=== PATIENT | female | born 1995 | race Caucasian/White ===

== ENCOUNTER 2017-04-01 04:20 | Inpatient (IN) | payer MEDICAID ==
[~2017-04-01] VITALS: Ht 152.4 cm; Wt 63.6 kg
[2017-04-01 04:57] VITALS: BP 126/80; PULSE 57; Ht 152.4 cm; Wt 63.6 kg
--- NOTE | 2017-04-01 04:59 | TRIAGE ---
OB Triage Datetime Report Generated by CPN: 04/01/2017 04:58 Datetime: 04/01/2017 04:50 Stage of : Labor Assessment Type: Admission Assessment Time of Arrival: 04/01/2017 04:25 EGA: 37.6 Arrived By: Wheelchair Arrived From: Home Chief Complaint: UCs and pain 10 Movement: Present Contractions: Regular Time Contractions Began: 04/01/2017 01:00 Contractions: 2 Rupture of Membranes: Denies Vaginal Bleeding: Normal Show Vaginal Discharge: Denies Recent Sexual Intercouse: Denies Abdominal Trauma: Not Applicable Patient Complaints: Contractions Time Provider Notified: 04/01/2017 04:55 Provider Notified: Russell Initial Plan: EFM/VS/VE Maternal Assessment Level of Consciousness: Fully Conscious DTR's/Clonus: DTRs 2+; No Clonus Headache: Denies Blurred Vision: No Respiratory Effort: Unlabored; Regular Rhythm; Equal Expansion Breath Sounds, Left: Clear and Equal Breath Sounds, Right: Clear and Equal Nausea/Vomiting: Denies RUQ Epigastric Pain: Denies Lower Extremities Edema: None Degree: None Upper Extremities Edema: None Degree: None Facial Edema: None Fall Risk Assessment History of Falling: (0) No Secondary Diagnosis: (0) No Ambulatory Aid: (0) Bedrest/Nurse Assist IV Therapy: (20) Yes Gait: (0) Normal/Bedrest/Immobile Mental Status: (0) Oriented to Own Ability Fall Score: 20 Fall Risk Score Definition: No Risk: No action required Pain Assessment Pain Scale: 4 Pain Presence: Intermittent Pain Type: Contraction Pain Location: Abdomen; Back Datetime: 04/01/2017 04:48 Time of Arrival: 04/01/2017 04:30 EGA: 37.6 Arrived By: Stretcher Arrived From: Other Unit in Hospital Datetime: 04/01/2017 04:30 Stage of : OB Triage Vaginal Exam Dilatation (cms): 4.0 Effacement (%): 80 Station: -2 Exam By: Peter Wagner RN Membrane Status: Intact Vaginal Bleeding: Scant
[2017-04-01] MEDS ORDERED: IBUPROFEN 600 MG TAB PO PRN (05:00)
[2017-04-01] MEDS ORDERED: MISOPROSTOL 200 MCG TAB PR PRN (05:00)
[2017-04-01] MEDS ORDERED: LIDOCAINE 1% (MPF) 30 ML INJ INJ PRN (05:00)
[2017-04-01] MEDS ORDERED: CARBOPROST 250 MCG INJ IM PRN (05:00)
[2017-04-01] MEDS ORDERED: METHYLERGONOVINE 0.2 MG INJ IM PRN (05:00)
[2017-04-01] MEDS ORDERED: OXYTOCIN 30 UNITS/LR 500 ML IV PRN (05:00)
[2017-04-01] MEDS ORDERED: ACETAMINOPHEN/CODEINE #3 TAB PO PRN ×3 (05:00→11:00)
[2017-04-01] MEDS ORDERED: OXYTOCIN 30 UNITS/LR 500 ML IV SCH (05:00)
[2017-04-01] MEDS ORDERED: BUTORPHANOL 2 MG INJ IV PRN ×2 (05:00)
[2017-04-01] MEDS ORDERED: LACTATED RINGER'S 1,000 ML IV PRN (05:02)
[2017-04-01 05:28] LABS: BASOPHILS % 0.5 % (0.0-2.0); EOSINOPHILS # 0.1 10^3/ul (0.0-0.5); EOSINOPHILS % 1.1 % (0.0-7.0); HEMATOCRIT 38.8 % (37.0-47.0); HEMOGLOBIN 13.4 g/dl (12.0-16.0); LYMPHOCYTES # 2.6 10^3/ul (0.8-2.9); LYMPHOCYTES % 32.7 % (15.0-51.0); MEAN CORPUSCULAR HGB CONC 34.5 g/dl (32.0-37.0); MEAN PLATELET VOLUME 11.5 fl (7.4-10.4); MONOCYTE # 0.5 10^3/ul (0.3-0.9); MONOCYTES % 6.1 % (0.0-11.0); NEUTROPHIL # 4.7 10^3/ul (1.6-7.5); PLATELET COUNT 185 10^3/UL (140-415); RED BLOOD COUNT 4.62 10^6/ul (4.20-5.40); RED CELL DISTRIBUTION WIDTH 12.7 % (11.5-14.5); WHITE BLOOD COUNT 7.9 10^3/ul (4.8-10.8)
[2017-04-01] MEDS: LACTATED RINGER'S 1,000 ML IV SCH ×2 (05:33→06:45)
[2017-04-01 05:50] LABS: ALBUMIN 4.2 g/dl (3.3-4.9); ALBUMIN/GLOBULIN RATIO 1.4; BILIRUBIN,INDIRECT 0.4 mg/dl (0-1.1); BILIRUBIN,TOTAL 0.4 mg/dl (0.2-1.3); CALCIUM 9.2 mg/dl (8.4-10.2); CREATININE 0.72 mg/dl (0.44-1.00); POTASSIUM 3.8 mmol/L (3.5-5.1); TOTAL PROTEIN 7.2 g/dl (6.1-8.1)
[2017-04-01 06:10] LABS: INR 0.85; PARTIAL THROMBOPLASTIN TIME 26.4 Sec (25.0-35.0); PROTIME 11.6 Sec (12.2-14.2); PT RATIO 0.9
[2017-04-01 06:52] LABS: ADD UMIC YES; UR BILIRUBIN (Dip) NEGATIVE (NEGATIVE); UR BLOOD (Dip) 3+ (NEGATIVE); UR CLARITY CLEAR (CLEAR); UR COLOR LT. YELLOW (YELLOW); UR GLUCOSE (Dip) NEGATIVE (NEGATIVE); UR KETONES (Dip) NEGATIVE (NEGATIVE); UR LEUKOCYTE ESTERASE (Dip) TRACE (NEGATIVE); UR NITRITE (Dip) NEGATIVE (NEGATIVE); UR TOTAL PROTEIN (Dip) NEGATIVE (NEGATIVE); UR UROBILINOGEN (Dip) 0.2 E.U./dL (0.1-1.0)
[2017-04-01 07:20] LABS: BARBITURATES Negative (NEGATIVE); BENZODIAZEPINES Negative (NEGATIVE); CANNABINOIDS Negative (NEGATIVE); COCAINE Negative (NEGATIVE); OPIATES Negative (NEGATIVE); UR SQUAMOUS EPITHELIAL CELL OCCASIONAL /HPF (FEW)
[2017-04-01 07:41] LABS: ADD SCAN DIFF NO
[2017-04-01] MEDS: OXYTOCIN 30 UNITS/LR 500 ML IV SCH ×4 (08:39→17:39)
--- NOTE | 2017-04-01 09:32 | LDN ---
Date/Time of Note Date/Time of Note DATE: 04/01/17 TIME: 09:26 Delivery Summary Normal spontaneous vaginal delivery(by Leida LEVY) baby boy from OA position shoulders delivered without any difficulties rest of the baby's body follow cord clamped after stopped pulsation placenta spontaneous expulsion inspected complete no vaginal perineal laceration estimated blood loss 250 cc Weeks of Gestation 37 weeks 6 days Placenta Delivered: Spontaneously Meconium: none Episiotomy: No Laceration repair: None Anesthesia type: None Estimated blood loss: 250 Sponge & Needle done & correct: Yes All needle counts correct: Yes Any foreign bodies felt in the: No Problems: Infant Delivery Information Sex Infant Sex: male Apgars 1 Minute: 9 5 Minute: 9 Suctioning Nose & mouth suctioned at fausto: Yes Delee suction performed: No Umbilical Cord Umbilical cord with: 3 Vessels Cord presentations: no nuchal cord Cord Blood was obtained: Yes ANDRÉS ORLANDO MD Apr 01, 2017 09:31
--- NOTE | 2017-04-01 09:37 | HP ---
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 Rubella: immune RPR/VDRL: Negative GBS Status: Negative HBsAG: Negative OB Admission Exam Vital Signs Vital Signs Vital Signs Date Time Temp Pulse Resp B/P Pulse Ox O2 Delivery O2 Flow Rate FiO2 04/01/17 04:57 98.4 57 126/80 Room Air Physical Exam HEENT: WNL Heart: Rhythm Normal Lungs: Clear, Equal Abdomen: WNL Extremities: Normal Reflexes: Normal Cervical Dilatation: 4cm Effacement: 75% Station: -2 Membranes: Intact Heart Rate: 130's Accelerations: Accelerations Present Varibility: Moderate Contractions on Admission: < 5 Minutes Apart Intensity: Firm Last 72 hours Lab Results CBC & BMP 04/01/17 04:35 Liver Function Test 04/01/17 04:35 Alanine Aminotransferase (ALT/SGPT) 33 Albumin 4.2 Alkaline Phosphatase 377 H Aspartate Amino Transf (AST/SGOT) 50 H Direct Bilirubin 0.00 Total Protein 7.2 ANDRÉS ORLANDO MD Apr 01, 2017 09:36
[2017-04-01 11:00] VITALS: BP 104/60; PULSE 61; RESP 18
[2017-04-01] MEDS ORDERED: ACETAMINOPHEN 325 MG TAB PO PRN (11:00)
[2017-04-01] MEDS ORDERED: BENZOCAINE 20% 56 ML SPRAY TOP PRN (11:00)
[2017-04-01] MEDS ORDERED: DIBUCAINE 1% 30 GM OINT PR PRN (11:00)
[2017-04-01] MEDS ORDERED: LANOLIN 7 GM TUBE TOP PRN (11:00)
[2017-04-01] MEDS ORDERED: OXYCODONE/ASPIRIN (4.88/325) TAB PO PRN ×2 (11:00)
[2017-04-01] MEDS ORDERED: ONDANSETRON 4 MG INJ IV PRN (11:00)
[2017-04-01] MEDS ORDERED: WITCH HAZEL/GLYCERIN PAD PR PRN (11:00)
[2017-04-01] MEDS: IBUPROFEN 600 MG TAB PO SCH ×3 (12:10→23:51)
[2017-04-01 15:35] VITALS: BP 112/64; PULSE 60; RESP 18
--- NOTE | 2017-04-01 16:21 | PN ---
Date/Time of Note Date/Time of Note DATE: 04/01/17 TIME: 16:20 OB Subjective Subjective Subjective day 1 Afebrile vital signs abdomen soft uterus firm lochia normal extremity normal ambulation encouraged ANDRÉS ORLANDO MD Apr 01, 2017 16:20
[2017-04-01 20:00] VITALS: BP 129/70; PULSE 63; RESP 18
[2017-04-01] MEDS: SENNA/DOCUSATE NA (8.6MG/50MG) TAB PO SCH (20:59)
[2017-04-02 00:15] VITALS: BP 118/75; PULSE 76; RESP 18
[2017-04-02 04:15] VITALS: BP 104/53; PULSE 68; RESP 20
[2017-04-02] MEDS: IBUPROFEN 600 MG TAB PO SCH ×4 (05:44→23:52)
[2017-04-02 08:45] VITALS: BP 109/59; PULSE 62; RESP 18
[2017-04-02] MEDS: SENNA/DOCUSATE NA (8.6MG/50MG) TAB PO SCH ×2 (09:01→20:38)
[2017-04-02 09:04] LABS: BASOPHILS % 0.4 % (0.0-2.0); EOSINOPHILS # 0.1 10^3/ul (0.0-0.5); EOSINOPHILS % 1.1 % (0.0-7.0); HEMATOCRIT 32.1 % (37.0-47.0); HEMOGLOBIN 10.5 g/dl (12.0-16.0); LYMPHOCYTES # 3.1 10^3/ul (0.8-2.9); LYMPHOCYTES % 28.2 % (15.0-51.0); MEAN CORPUSCULAR HGB CONC 32.7 g/dl (32.0-37.0); MEAN CORPUSCULAR VOLUME 85.6 fl (82.0-101.0); MEAN PLATELET VOLUME 11.3 fl (7.4-10.4); MONOCYTE # 0.8 10^3/ul (0.3-0.9); MONOCYTES % 7.2 % (0.0-11.0); NEUTROPHIL # 6.9 10^3/ul (1.6-7.5); NEUTROPHILS % 62.4 % (39.0-77.0); PLATELET COUNT 157 10^3/UL (140-415); RED BLOOD COUNT 3.75 10^6/ul (4.20-5.40); RED CELL DISTRIBUTION WIDTH 13.1 % (11.5-14.5)
--- NOTE | 2017-04-02 13:43 | PN ---
Date/Time of Note Date/Time of Note DATE: 04/02/17 TIME: 13:42 OB Subjective Subjective Subjective day Afebrile vital signs are stable abdomen soft uterus firm lochia normal extremities normal ambulation encouraged Laboratory Tests Test 04/02/17 08:40 White Blood Count 11.010^3/ul Red Blood Count 3.7510^6/ul Hemoglobin 10.5g/dl Hematocrit 32.1% Mean Corpuscular Volume 85.6fl Mean Corpuscular Hemoglobin 28.0pg Mean Corpuscular Hemoglobin Concent 32.7g/dl Red Cell Distribution Width 13.1% Platelet Count 84247^3/UL Mean Platelet Volume 11.3fl Neutrophils % 62.4% Lymphocytes % 28.2% Monocytes % 7.2% Eosinophils % 1.1% Basophils % 0.4% Nucleated Red Blood Cells % 0.0/100WBC Neutrophils # 6.910^3/ul Lymphocytes # 3.110^3/ul Monocytes # 0.810^3/ul Eosinophils # 0.110^3/ul Basophils # 0.010^3/ul Nucleated Red Blood Cells # 0.010^3/ul Current Medications Medications (Trade) Dose Ordered Sig/Ruma Route PRN Reason Start Time Stop Time Status Last Admin Dose Admin Lactated Ringer's (Lr) 1,000 ml @ 125 mls/hr Q8H IV 04/01/17 05:00 04/01/17 10:39 DC 04/01/17 06:45 Butorphanol Tartrate (Stadol) 1 mg Q2H PRN IV PAIN 04/01/17 05:00 04/01/17 10:40 DC Butorphanol Tartrate (Stadol) 2 mg Q2H PRN IV PAIN 04/01/17 05:00 04/01/17 10:40 DC Lidocaine 30 ml 30 ml ONCE PRN INJ EPISIOTOMY/TEARING 04/01/17 05:00 04/01/17 10:40 DC Oxytocin/Lactated Ringer's 500 ml @ 125 mls/hr ONCE -MAY REPEAT X1 IV 04/01/17 05:00 04/01/17 10:39 DC 04/01/17 09:15 Oxytocin/Lactated Ringer's 500 ml @ 125 mls/hr ONCE IV 04/01/17 05:00 04/01/17 10:39 DC Ibuprofen (Motrin) 600 mg ONCE PRN PO Mild Pain (Pain Score 1-3) 04/01/17 05:00 04/01/17 10:40 DC Acetaminophen/ Codeine Phosphate 2 tab 2 tab ONCE PRN PO Moderate to Severe Pain (4-10) 04/01/17 05:00 04/01/17 10:40 DC 04/01/17 08:34 Lactated Ringer's 1,000 ml @ 2,000 mls/hr Q30M PRN IV PRE-EPIDURAL BOLUS 04/01/17 05:02 04/01/17 10:39 DC Oxytocin/Lactated Ringer's 500 ml @ 0 mls/hr ONCE PRN IV For Hemorrhage Management 04/01/17 05:00 04/01/17 10:39 DC Methylergonovine Maleate (Methergine) 0.2 mg ONCE PRN IM VAGINAL BLEEDING 04/01/17 05:00 04/01/17 10:40 DC Carboprost Tromethamine (Hemabate) 250 mcg ONCE PRN IM VAGINAL BLEEDING 04/01/17 05:00 04/01/17 10:40 DC Misoprostol 1000 mcg 1,000 mcg ONCE PRN TX VAGINAL BLEEDING 04/01/17 05:00 04/01/17 10:40 DC Oxytocin/Lactated Ringer's 500 ml @ 125 mls/hr Q4H IV 04/01/17 10:37 04/01/17 18:36 DC 04/01/17 17:39 Ibuprofen (Motrin) 600 mg Q6 PO 04/01/17 12:00 04/02/17 12:24 Acetaminophen (Tylenol Tab) 650 mg Q4H PRN PO PAIN LEVEL 1-5 04/01/17 11:00 Acetaminophen/ Codeine Phosphate (Tylenol No.3) 1 tab Q4H PRN PO PAIN LEVEL 1-5 04/01/17 11:00 Acetaminophen/ Codeine Phosphate (Tylenol No.3) 2 tab Q4H PRN PO PAIN LEVEL 6-10 04/01/17 11:00 Oxycodone/Aspirin (Percodan) 1 tab Q3H PRN PO PAIN LEVEL 1-5 04/01/17 11:00 Oxycodone/Aspirin (Percodan) 2 tab Q3H PRN PO PAIN LEVEL 6-10 04/01/17 11:00 Ondansetron HCl (Zofran Inj) 4 mg Q6H PRN IV NAUSEA AND/OR VOMITING 04/01/17 11:00 Senna/Docusate Sodium (Senokot-S) 1 tab BID PO 04/01/17 21:00 04/02/17 09:01 Witch Mehreen/ Glycerin (Tucks Pads) 1 pad BEDSIDE MEDICATION PRN TX HEMORRHOID/EPISIOTMY PAIN 04/01/17 11:00 04/01/17 10:59 Benzocaine (Dermoplast [place]) 1 spray BEDSIDE MEDICATION PRN TOP HEMORRHOID/EPISIOTMY PAIN 04/01/17 11:00 04/01/17 10:59 Dibucaine (Nupercainal) 1 applic BEDSIDE MEDICATION PRN TX HEMORRHOID/EPISIOTMY PAIN 04/01/17 11:00 04/01/17 10:59 Lanolin (Meo-H-Zgjbqy) 1 applic BEDSIDE MEDICATION PRN TOP BEDSIDE FOR MESERET TO NIPPLES 04/01/17 11:00 04/01/17 10:59 Measles/Mumps/ Rubella Vaccine Live (Mmr Ii Vaccine) 0.5 ml ONCE ONCE SC* 04/03/17 09:00 04/03/17 09:01 ANDRÉS ORLANDO MD Apr 02, 2017 13:43
[2017-04-02 13:45] LABS: RUBELLA ANTIBODY - IGG 4.73 index
[2017-04-02 16:23] VITALS: BP 108/56; PULSE 61; RESP 18
[2017-04-02 19:30] VITALS: BP 131/64; PULSE 59; RESP 17
[2017-04-03 03:45] VITALS: BP 101/52; PULSE 81; RESP 17
[2017-04-03] MEDS: IBUPROFEN 600 MG TAB PO SCH ×2 (05:39→11:34)
[2017-04-03 08:23] VITALS: BP 115/50; PULSE 55; RESP 16
[2017-04-03] MEDS ORDERED: MEASLES,MUMPS,RUBELLA VACCINE INJ SC* ONE (09:00)
[2017-04-03] MEDS: SENNA/DOCUSATE NA (8.6MG/50MG) TAB PO SCH (09:00)
--- NOTE | 2017-04-03 09:22 | DS ---
Date/Time of Note Date/Time of Note DATE: 04/03/17 TIME: 09:21 Obstetrical Discharge Record Final Diagnosis Final Diagnosis: Term delivered Other Final Diagnosis s/p . Doing well. c/o cramps some times Vaginal Delivery Obstetrical Delivery: Spontaneous Condition on Discharge Physical Assessment Voiding: Yes Bowel Movement: Yes Breast: Soft, non-tender, Filling Fundus: Firm Abdomen and Incision: soft, not tender Calf Tenderness: No Patient Condition: Good YUNIEL SALGADO MD Apr 03, 2017 09:22
== END 2017-04-03 13:00 | disposition home or self-care (01) | DRG 775 ==
LOC: OBT 04:20 → L-D 04:20 → OBT 04:29 → L-D 04:30 → PP1 10:56
PROVIDERS: ADMIT Obstetrics & Gynecology; ATTEND Obstetrics & Gynecology
PROC: 10E0XZZ Delivery of Products of Conception, External Approach (ICD-10-PCS; principal; 2017-04-01)
DX: O80 Encounter for full-term uncomplicated delivery (principal); Z37.0 Single live birth; Z3A.37 37 weeks gestation of pregnancy
CPT/HCPCS: 80053; 80307; 81001; 84560; 85025; 85384; 85610; 85730; 86592; 86703; 86762; 86900; 86901; 87340; G0463; J2590; J7120

== ENCOUNTER 2019-05-09 05:25 | Inpatient (IN) | payer MEDICAID ==
[~2019-05-09] VITALS: Ht 152.4 cm; Wt 57.4 kg
[~2019-05-09 05:25] MED LIST: PREN-93 PO
[2019-05-09 05:37] VITALS: BP 108/65; PULSE 67; RESP 18; Ht 152.4 cm; Wt 57.4 kg
[2019-05-09] MEDS ORDERED: LACTATED RINGER'S 1,000 ML IV SCH (05:56)
[2019-05-09] MEDS ORDERED: LACTATED RINGER'S 1,000 ML IV PRN (05:56)
[2019-05-09] MEDS ORDERED: OXYTOCIN 30 UNITS/LR 500 ML IV SCH ×2 (06:00)
[2019-05-09] MEDS ORDERED: IBUPROFEN 600 MG TAB PO PRN (06:00)
[2019-05-09] MEDS ORDERED: OXYTOCIN 30 UNITS/LR 500 ML IV PRN ×2 (06:00→12:30)
[2019-05-09] MEDS ORDERED: AMPICILLIN 2 GM/NS (PMX) 100 ML IV ONE (06:00)
[2019-05-09] MEDS ORDERED: MISOPROSTOL 200 MCG TAB PR PRN ×2 (06:00→12:30)
[2019-05-09] MEDS ORDERED: CARBOPROST 250 MCG INJ IM PRN ×2 (06:00→12:30)
[2019-05-09] MEDS ORDERED: METHYLERGONOVINE 0.2 MG INJ IM PRN ×2 (06:00→12:30)
[2019-05-09] MEDS ORDERED: LIDOCAINE 1% (MPF) 30 ML INJ INJ PRN (06:00)
[2019-05-09] MEDS ORDERED: MAGNESIUM SULFATE 20 GM/500 ML 500 ML IV SCH (06:04)
[2019-05-09 06:20] VITALS: BP 114/58; PULSE 70; RESP 17
[2019-05-09] MEDS ORDERED: MAGNESIUM SULFATE 4 GM/100 ML 100 ML IV ONE (06:30)
--- NOTE | 2019-05-09 06:55 | TRIAGE ---
OB Triage Datetime Report Generated by CPN: 05/09/2019 06:54 Datetime: 05/09/2019 06:48 Stage of : Labor Maternal Assessment Level of Consciousness: Keenly Alert, Responsive DTR's/Clonus: DTRs 2+ Headache: Denies Breath Sounds, Left: Clear and Equal Breath Sounds, Right: Clear and Equal Nausea/Vomiting: Denies RUQ Epigastric Pain: Denies Datetime: 05/09/2019 06:26 Stage of : Labor Maternal Assessment Level of Consciousness: Keenly Alert, Responsive DTR's/Clonus: DTRs 2+ Headache: Denies Breath Sounds, Left: Clear and Equal Breath Sounds, Right: Clear and Equal Nausea/Vomiting: Denies RUQ Epigastric Pain: Denies Datetime: 05/09/2019 06:19 Assessment Type: Admission Assessment Vaginal Bleeding: Moderate Maternal Assessment Level of Consciousness: Keenly Alert, Responsive DTR's/Clonus: DTRs 2+; No Clonus Headache: Denies Blurred Vision: No Respiratory Effort: Unlabored; Regular Rhythm; Equal Expansion Breath Sounds, Left: Clear and Equal Breath Sounds, Right: Clear and Equal Nausea/Vomiting: Denies RUQ Epigastric Pain: Denies Lower Extremities Edema: None Degree: None Upper Extremities Edema: None Degree: None Facial Edema: None Fall Risk Assessment History of Falling: (0) No Secondary Diagnosis: (0) No Ambulatory Aid: (0) Bedrest/Nurse Assist IV Therapy: (0) No Gait: (0) Normal/Bedrest/Immobile Mental Status: (0) Oriented to Own Ability Fall Score: 0 Fall Risk Score Definition: No Risk: No action required Pain Assessment Pain Scale: 6 Pain Presence: Intermittent Pain Type: Contraction Pain Location: Abdomen; Back; Perineum Membrane Status: Intact Datetime: 05/09/2019 06:06 Time of Arrival: 05/09/2019 06:00 EGA: 30.3 Arrived By: Wheelchair Arrived From: Home Datetime: 05/09/2019 05:59 Labor Evaluation Frequency: 1.5-3 Monitor Mode: External Duration (sec)2399: 60-80 Quality: Moderate Pattern: Normal: <= 5 Contractions in 10 Minutes Resting Tone [place]: Relaxed Heart Rate FHR Baseline Rate: 140 Monitor Mode: External US Variability: Moderate 6-25 bpm Accelerations: 15X15 Decelerations: Variable Category: Category II Comments: OFF MONITOR TO BE TRANSFERRED TO [facility] 3 VIA GURNEY ACCOMPANIED BY RN Datetime: 05/09/2019 05:52 Vaginal Exam Dilatation (cms): 4.0 Effacement (%): 70 Station: -2 Exam By: COOKIE Manzanares Vaginal Bleeding: Moderate Cervix, Consistency: Soft Cervix, Position: Posterior Datetime: 05/09/2019 05:50 Stage of : OB Triage Datetime: 05/09/2019 05:44 Stage of : OB Triage Datetime: 05/09/2019 05:40 Time of Arrival: 05/09/2019 05:25 EGA: 30.3 Arrived By: Wheelchair Arrived From: Home Chief Complaint: Pt reports uc's [id number] with pain @3/10 Movement: Present Contractions: Irregular Time Contractions Began: 05/09/2019 01:00 Contractions: [id number] Rupture of Membranes: Denies Vaginal Bleeding: Small Vaginal Discharge: Present Abdominal Trauma: Not Applicable Patient Complaints: Contractions; Cramping Time Provider Notified: 05/09/2019 05:50 Provider Notified: Initial Plan: EFM, [place] Datetime: 05/09/2019 05:37 Stage of : OB Triage Assessment Type: Triage Maternal Assessment Level of Consciousness: Keenly Alert, Responsive DTR's/Clonus: DTRs 2+; No Clonus Headache: Denies Blurred Vision: No Respiratory Effort: Unlabored; Regular Rhythm; Equal Expansion Breath Sounds, Left: Clear and Equal Breath Sounds, Right: Clear and Equal Nausea/Vomiting: Denies RUQ Epigastric Pain: Denies Lower Extremities Edema: None Degree: None Upper Extremities Edema: None Degree: None Facial Edema: None Temperature Route: Oral Fall Risk Assessment History of Falling: (0) No Secondary Diagnosis: (0) No Ambulatory Aid: (0) Bedrest/Nurse Assist IV Therapy: (0) No Gait: (0) Normal/Bedrest/Immobile Mental Status: (0) Oriented to Own Ability Fall Score: 0 Fall Risk Score Definition: No Risk: No action required Monitor Mode: External Contraction Comments: [place] applied Pain Assessment Pain Scale: 3 Pain Presence: Intermittent Pain Type: Cramping Pain Location: Abdomen Pain Relief Measures: Comfort Measures Datetime: 05/09/2019 05:36 Heart Rate FHR Baseline Rate: 140 Monitor Mode: External US Comments: EFM applied
[2019-05-09] MEDS ORDERED: BETAMET NA PHOS/AC(6 MG/ML) 2 ML INJ SYG IM SCH (07:00)
--- NOTE | 2019-05-09 08:53 | HP ---
Date/Time of Note Date/Time of Note DATE: 05/09/19 TIME: 08:49 OB - History Hx of Present Free Text/Dictation 24 years old -0-0-1 with single intrauterine at 30 weeks and 3 days with a WILI of 07/17/2019 complaining of uterine contractions. She states good movement. She denies nausea, vomiting, shortness of breath, chest pain, headache, visual changes, vaginal bleeding or LOF. Chief Complaint: Uterine contractions Estimated Due Date: Jul 17, 2019 : 2 Para: 1 Spontaneous : 0 Therapeutic : 0 Care: Good Care Ultrasounds: Normal mid trimester US Obstetrical Complications: None Medical Complications: None Past Family/Social History * Past Medical, Surgical, Family and Obstetric Histories reviewed from chart. Blood Type: O+ Rubella: immune RPR/VDRL: Negative GBS Status: Unknown HBsAG: Negative OB Admission Exam Vital Signs Vital Signs Vital Signs Date Temp Pulse Resp B/P (MAP) Pulse Ox O2 O2 Flow FiO2 Time Delivery Rate 05/09/19 98.2 70 17 114/58 Room Air 06:20 (76) Physical Exam HEENT: WNL Heart: Rhythm Normal Lungs: Clear Abdomen: WNL Extremities: Normal Reflexes: Normal Cervical Dilatation: 4cm Effacement: 75% Station: -2 Membranes: Intact Heart Rate: 130's Accelerations: Accelerations Present Decelerations: No Decelerations Varibility: Moderate Contractions on Admission: < 5 Minutes Apart Intensity: Moderate Last 72 hours Lab Results CBC & BMP 05/09/19 06:20 OB Assessment/Plan Other plan: 24 years old 2 para 1-0-0-1 with single intrauterine at 30 weeks and 3 days with labor -FHR: Category I -Continuous EFM, toco -CBC, blood type and screen -Urinalysis and urine culture -Magnesium sulfate for tocolysis and neuro protection per protocol -Betamethasone 12 mg IM every 12 hours -Neonatology and perinatology consult please see the orders -O+/Rubella: Immune -GBS: Unknown Addendum: Patient seen at 8:30 AM on 05/09/2019 SVE: 8/100/-2/ceph/intact Admission, procedures, expectations, risks and possible complications have been discussed in detail with the patient. Risk of vaginal delivery including but not limited to bleeding, infection, cervical laceration, placental retention, injury to fetus, blood transfusion, blood transfusion related infection, risk of anesthesia, adhesion, cervical laceration, episiotomy/laceration, possible delivery with risk of bleeding, infection, injury to other organs (bowel, bladder, ureter, vessels, nerves), injury to fetus, blood transfusion, blood transfusion related infection, risk of anesthesia, scar and hernia formation, needs for future , removal of uterus or any other indicated surgery discussed with the patient. She expressed understanding and repeats the risks. All of her questions were answered. She signed the informed consent. PHYSICIAN'S VERIFICATION OF INFORMED CONSENT The patient was counseled regarding the procedure, its indications, risks, potential complications and alternatives and any questions were answered. Consent was obtained. PLANNED PROCEDURE/TREATMENT: Vaginal delivery, episiotomy, repair of laceration possible delivery SHARAD PATEL May 09, 2019 08:53
[2019-05-09] MEDS ORDERED: AMPICILLIN 1 GM/NS (PMX) 50 ML IV SCH (10:00)
[2019-05-09 12:00] VITALS: BP 119/72; PULSE 62; RESP 18
[2019-05-09] MEDS ORDERED: LACTATED RINGER'S 1,000 ML IV* SCH (12:26)
[2019-05-09] MEDS ORDERED: DEXTROSE 5%-LR 1,000 ML IV SCH (12:26)
[2019-05-09] MEDS ORDERED: ACETAMINOPHEN 325 MG TAB PO PRN (12:30)
[2019-05-09] MEDS ORDERED: SENNA/DOCUSATE NA (8.6MG/50MG) TAB PO PRN (12:30)
[2019-05-09] MEDS ORDERED: ZOLPIDEM 5 MG TAB PO PRN (12:30)
[2019-05-09] MEDS ORDERED: OXYCODONE/ASPIRIN (4.88/325) TAB PO PRN (12:30)
[2019-05-09] MEDS ORDERED: LANOLIN HPA 1 PKT TOP PRN (12:30)
[2019-05-09] MEDS ORDERED: DIPHENHYDRAMINE 50 MG INJ IV PRN (12:30)
[2019-05-09] MEDS ORDERED: DIBUCAINE 1% 30 GM OINT TOP PRN (12:30)
[2019-05-09] MEDS ORDERED: BENZOCAINE 20% 56 ML SPRAY TOP PRN (12:30)
[2019-05-09] MEDS ORDERED: WITCH HAZEL/GLYCERIN PAD PR PRN (12:30)
[2019-05-09] MEDS ORDERED: ONDANSETRON 4 MG INJ IV PRN (12:30)
[2019-05-09 13:00] VITALS: BP 108/50; PULSE 68; RESP 18
[2019-05-09] MEDS: IBUPROFEN 600 MG TAB PO SCH ×2 (17:13→23:37)
[2019-05-09 17:17] VITALS: BP 97/52; PULSE 66; RESP 18
[2019-05-09 19:45] VITALS: BP 95/53; PULSE 62
--- NOTE | 2019-05-09 23:44 | LDN ---
Date/Time of Note Date/Time of Note DATE: 05/09/19 TIME: 23:44 Delivery Summary 24 years old 2 para 1-0-0-1 with single intrauterine at 30 weeks and 3 days delivered a viable male over intact perineum. Nose and mouth suctioned. Rest of body delivered. Baby given to the NICU team. Placenta delivered spontaneously and intact with three-vessel cord. Placenta sent to pathology. Patient tolerated procedure well. Time of delivery 0 948 8 at 1 minutes and 9 at 5 minutes Weight 3 pounds 11 ounces - 1660 g Height 15 3/4 inches EBL 250 mL Weeks of Gestation 30 weeks and 3 days Placenta Delivered: Spontaneously Meconium: none Episiotomy: No Estimated blood loss: 250 Sponge & Needle done & correct: Yes All needle counts correct: Yes Any foreign bodies felt in the: No Infant Delivery Information Sex Infant Sex: male Apgars 1 Minute: 8 5 Minute: 9 10 Minute: 10 Suctioning Nose & mouth suctioned at fausto: Yes Umbilical Cord Umbilical cord with: 3 Vessels Cord Blood was obtained: Yes Mother & Baby Disposition Disposition Mom transferred to: Other () Baby to NICU: Yes SHARAD PATEL May 09, 2019 23:44
[2019-05-10] VITALS: BP 101/54; PULSE 62; RESP 20
[2019-05-10 03:30] VITALS: BP 102/51; PULSE 68; RESP 19
[2019-05-10] MEDS: IBUPROFEN 600 MG TAB PO SCH ×4 (05:26→23:29)
--- NOTE | 2019-05-10 07:59 | DS ---
Date/Time of Note Date/Time of Note DATE: 05/10/19 TIME: 07:58 Obstetrical Discharge Record Final Diagnosis Final Diagnosis: delivered Other Final Diagnosis progress note not discharge summary Subjective: Tolerating regular diet. Voiding. Ambulating. Vaginal bleeding within normal limits. Bottle feeding. Objective: Vital signs: 105/53 H/H: 11/34 WBC 18.5 General: No apparent distress Breast: Normal Fundus: 2 fingerbreadths below the umbilicus Extremities: Nontender to palpation Assessment/plan: 1. day 1 from vaginal delivery-routine pp care 2. Leukocytosis-afebrile, vitals stable. continue to monitor for s/s endomyometritis. cbc in am. Vaginal Delivery Obstetrical Delivery: Spontaneous Condition on Discharge Physical Assessment Patient Condition: Good MILESTONE,PEREZ GOFF May 10, 2019 07:59
[2019-05-10 08:00] VITALS: BP 105/53; PULSE 65
[2019-05-10 16:04] VITALS: BP 103/52; PULSE 63
[2019-05-10 19:55] VITALS: BP 104/55; PULSE 60; RESP 19
[2019-05-11 03:45] VITALS: BP 95/50; PULSE 59; RESP 20
[2019-05-11] MEDS: IBUPROFEN 600 MG TAB PO SCH ×2 (05:41→12:01)
[2019-05-11 08:30] VITALS: BP 96/50; PULSE 56; RESP 18
[2019-05-11] MEDS ORDERED: MEASLES,MUMPS,RUBELLA VACCINE INJ SC* ONE (09:00)
[2019-05-11] MEDS ORDERED: DIPHTH/TET/ACEL PERTUSS (ADULT) 0.5 ML VIAL IM* ONE (09:00)
[2019-05-11 16:09] VITALS: BP 103/57; PULSE 57; RESP 18
--- NOTE | 2019-05-11 16:54 | DS ---
Date/Time of Note Date/Time of Note DATE: 05/11/19 TIME: 16:52 Obstetrical Discharge Record Final Diagnosis Final Diagnosis: delivered Other Final Diagnosis labor Vaginal Delivery Obstetrical Delivery: Spontaneous Complications Augmentation: No Induction: No Condition on Discharge Physical Assessment Last Vitals: VSS afebrile Voiding: Yes Bowel Movement: Yes Breast: Soft, non-tender Fundus: Firm Abdomen and Incision: n/a Episiotomy: n/a Calf Tenderness: No Patient Condition: Stable LILIANA NAIR MD May 11, 2019 16:54
--- NOTE | 2019-05-11 17:02 | PD.PPDC ---
MANAGER CONTRACT Discharge Instruction Diagnosis [id number] Final Diagnosis: Gkotc1y s/p at 30w3d Condition Tmyev3Mp Patient Condition: Etnzh7p Stable Diet Flubd9Td Diet: Wyvnx7x Resume Regular Diet Activity/Restrictions Rvxae1Xs Activity: Wjlif9c May Shower Glgcx2Of Restrictions: Bxzoj2i No Lifting No Sexual Activity Nothing in the Vagina No [place] No Tampons, douche Follow-up Follow-up with Physician: 2, Week/Weeks Return to clinic for [id number] ASSET MANAGEMENT ANALYST Instructions: Dokye1s Fever greater than 101 Chills Worsening abdominal pain Excessive Vaginal Bleeding More than 2 pads per hour Unable to tolerate diet [id number] OB Instructions: Tyzib6j Breast Tenderness Depression Blurried Vision Headache LILIANA NAIR MD May 11, 2019 17:02
--- NOTE | 2019-05-12 20:01 | DELSUM ---
Delivery Summary A-C Datetime Report Generated by CPN: 05/12/2019 20:00 DELIVERY PERSONNEL Pipe Threading Machine Operator: Beverley Simmonsicia MATERNAL INFORMATION Delivery Anesthesia: None Medications in Delivery: LR with 30 Units Pitocin Delivery QBL (ml): 200 Placenta Cultured: Yes Maternal Complications: Other Other Maternal Complications: 30.3 weeks in labor LABOR SUMMARY EDC: 07/15/2019 00:00 No. Babies in Womb: 1 Attempted: No Labor Anesthesia: None LABOR INFORMATION Reason for Induction: Not Applicable Onset of Labor: 05/09/2019 01:30 Complete Dilatation: 05/09/2019 09:38 Group B Beta Strep: Not Done Antibiotics # of Doses: Ampicillin x1 Antibiotics Time of Last Dose: 05/09/2019 06:30 Steroids Given: Partial Course Reason Steroids Not Administered: Not Applicable Other Reason Not Administered: Celestone 12mg x1 at 0638 MEMBRANES Membranes Rupture Method: Spontaneous Rupture of Membranes: 05/09/2019 09:47 Length of Rupture (hr): 0.02 Amniotic Fluid Color: Clear Amniotic Fluid Amount: Moderate Amniotic Fluid Odor: None STAGES OF LABOR Stage 1 hr: 8 Stage 1 min: 8 Stage 2 hr: 0 Stage 2 min: 10 Stage 3 hr: 0 Stage 3 min: 3 Total Time in Labor hr: 8 Total Time in Labor min: 21 VAGINAL DELIVERY Episiotomy: None Laceration Extension: N/A Laceration Type: None Laceration Repair: Not Applicable Initial Vag Sponge Count: 10 Final Vag Sponge Count: 10 Initial Vag Sharps Count: 1 Final Vag Sharps Count: 1 Sponge Count Correct: Yes Sharps Count Correct: Yes BABY A INFORMATION Infant Delivery Date/Time: 05/09/2019 09:48 Method of Delivery: Vaginal Born in Route : No : N/A Forceps: N/A Vacuum Extraction: N/A Shoulder Dystocia : N/A SHOULDER DYSTOCIA BABY A Delivery Date/Time: 05/09/2019 09:48 PRESENTATION/POSITION BABY A Presentation: Cephalic Cephalic Presentation: Vertex Vertex Position: Right Occipital Anterior Breech Presentation: N/A PLACENTA INFORMATION BABY A Placenta Delivery Time : 05/09/2019 09:51 Placenta Method of Delivery: Spontaneous Placenta Status: Delivered SCORES BABY A Heart Rate 1 min: >100 bpm Resp Effort 1 min: Good Cry Reflex Irritability 1 min: Cough/Sneeze/Pulls Away Muscle Tone 1 min: Active Motion Color 1 min: Blue/Pale Resuscitation Effort 1 min: Tactile Stimulation SCORE 1 MIN: 8 Heart Rate 5 min: >100 bpm Resp Effort 5 min: Good Cry Reflex Irritability 5 min: Cough/Sneeze/Pulls Away Muscle Tone 5 min: Active Motion Color 5 min: Body [place], Extremit Blue Resuscitation Effort 5 min: Tactile Stimulation SCORE 5 MIN: 9 INFORMATION BABY A Gestational Age at Delivery: 30.3 Gestational Status: - <34 Weeks Infant Outcome : Liveborn, with signs of life Condition : Stable Infant Sex: Male IDENTIFICATION/MEDS BABY A ID Band Number: [id number] ID Band Location: Other Sensor Applied: No Sensor Number: N/A Sensor Location : Other Vitamin K Given : Not Given Erythromycin Given: Not Given WEIGHT/LENGTH BABY A Birthweight (gm): 1660 Infant Weight (lb): 3 Infant Weight (oz): 11 Infant Length (in): 15.75 Infant Length (cm): 40.01 CORD INFORMATION BABY A No. Cord Vessels: 3 Nuchal Cord : N/A Cord Blood Taken: Yes Infant Suction: Mouth; Nose ASSESSMENT BABY A Complications: None Complications- Other: 30.3 weeks (pre-term labor) Physical Findings at Delivery: Within Normal Limits Respirations: Appears Normal Mesh Worker/ALS Called : Yes Infant Care By: Mehreen Morales RN, Theron RT Transferred To: NICU
== END 2019-05-11 17:35 | disposition home or self-care (01) | DRG 807 ==
LOC: OBT 05:25 → L-D 05:25 → OBT 05:50 → L-D 05:50 → PP1 12:07
PROVIDERS: ADMIT Obstetrics & Gynecology; ATTEND Obstetrics & Gynecology
PROC: 10E0XZZ Delivery of Products of Conception, External Approach (ICD-10-PCS; principal; 2019-05-09)
DX: O60.13X0 Preterm labor second trimester with preterm delivery third trimester, not applicable or unspecified (principal); Z37.0 Single live birth; Z3A.30 30 weeks gestation of pregnancy
CPT/HCPCS: 76815; 80307; 81001; 83735; 85025; 85610; 85730; 86592; 86850; 86900; 86901; 87086; 87340; 88307; 90715; G0463; J0290; J0702; J2590; J3475; J7120; J7121